=== PATIENT | male | born 1940 | race Caucasian/White ===

== ENCOUNTER → 2021-01-09 10:04 | Outpatient (BNVA) | payer MEDICARE, OTHER, SELFPAY | PROVIDERS: PCP Family Medicine; Visit Provider Family Medicine | DX: I10 Essential (primary) hypertension (principal); R41.0 Disorientation, unspecified | CPT/HCPCS: 80053; 85025 ==

== ENCOUNTER → 2021-05-08 14:00 | Outpatient (BNVA) | payer MEDICARE, OTHER, SELFPAY | PROVIDERS: PCP Family Medicine; Referring Provider Family Medicine; Visit Provider Specialist | DX: G30.9 Alzheimer's disease, unspecified (principal); F02.80 Dementia in other diseases classified elsewhere, unspecified severity, without behavioral disturbance, psychotic disturbance, mood disturbance, and anxiety; Z86.73 Personal history of transient ischemic attack (TIA), and cerebral infarction without residual deficits; I35.0 Nonrheumatic aortic (valve) stenosis | CPT/HCPCS: 96116; 99205 ==

== ENCOUNTER 2021-06-20 13:18 | Outpatient (CLI) | payer MEDICARE, SELFPAY ==
--- NOTE | 2021-06-20 13:52 | MR_ITS ---
WS: [id number] MRA CAROTID WITHOUT GADOLINIUM ENHANCEMENT TECHNIQUE: Axial 2-D TOF and T slip carotid obtained with axial images and axial, sagittal, and coron al 2-D reformatted images. 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 FINDINGS: RIGHT: Right common carotid artery is patent. Right proximal ICA stenosis measures approximately 50%. ICA is patent to the skull base. LEFT: Left common carotid artery is patent. Left proximal ICA stenosis measures approximately 75-80%. Left ICA appears somewhat diminutive in the neck but patent to the skull base. Somewhat diminutive p etrous and cavernous segments. Left dominant vertebral artery. Left vertebral artery is patent to the vertebrobasilar junction Tiny hypoplastic right vertebral artery with only a tiny amount of flow. MR/MR angio neck wo con [id number] IMPRESSION: 1. Left proximal ICA stenosis measures approximately 75-80%. Left cervical ICA is patent to the skull base producing caliber. Small caliber petrous and marlen nous segments. Recommend further evaluation with gadolinium bolus carotid MRA o r CTA prior to surgical intervention for better anatomic detail. 2. Approximately 50% right ICA stenosis. 3. Left dominant vertebral artery. Tiny hypoplastic right vertebral artery.
--- NOTE | 2021-06-20 13:52 | MR_ITS ---
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 TECHNIQUE: Diffusion imaging, multiplanar T1, T2 and FLAIR imaging obtained. Diffusion-weighted abnormality involving the cortex of the posterior RIGHT occipital lobe. This is al paris the posterior aspect of a prior large territory infarct involving the RIGHT temporal occipital lo be. No additional acute infarct. There is extensive volume loss in the RIGHT occipital and temporal lobes from encephalomalacia and as sociated cortical laminar necrosis. Mild diffuse ventriculomegaly from atrophy and volume loss. No inferior displacement of cerebellar tonsils. The sella turcica and pituitary gland are unremarkabl e. Dural venous sinuses and [place] demonstrate no abnormality on this unenhanced studies. Paranasal sinuses: Clear. Mastoid air cells: Small bilateral mastoid air cell effusions. Slightly greater pocket of fluid in th e LEFT mastoid air cell. Calvarium and scalp: Intact. MR/MR head wo con* [id number] IMPRESSION: 1. Small acute to subacute lacunar infarct posterior cortex of the RIGHT occip ital lobe. Closely associated with the prior large RIGHT temporal occipital lob e infarct with volume loss and encephalomalacia. 2. Otherwise mild chronic microvascular ischemic changes.
== END 2021-06-20 13:19 | disposition home or self-care (01) ==
PROVIDERS: PCP Family Medicine; Visit Provider Specialist
DX: I63.6 Cerebral infarction due to cerebral venous thrombosis, nonpyogenic (principal); I65.23 Occlusion and stenosis of bilateral carotid arteries; I63.81 Other cerebral infarction due to occlusion or stenosis of small artery
CPT/HCPCS: 70547; 70551

== ENCOUNTER → 2021-10-18 14:57 | Outpatient (BNVA) | payer MEDICARE, SELFPAY | PROVIDERS: PCP Family Medicine; Visit Provider Specialist | DX: G30.9 Alzheimer's disease, unspecified (principal); F02.80 Dementia in other diseases classified elsewhere, unspecified severity, without behavioral disturbance, psychotic disturbance, mood disturbance, and anxiety; Z86.73 Personal history of transient ischemic attack (TIA), and cerebral infarction without residual deficits | CPT/HCPCS: 99214; 99215 ==

== ENCOUNTER → 2022-02-19 11:30 | Outpatient (BNVA) | payer MEDICARE, SELFPAY | PROVIDERS: PCP Family Medicine; Visit Provider Family Medicine | DX: I63.511 Cerebral infarction due to unspecified occlusion or stenosis of right middle cerebral artery (principal); G30.9 Alzheimer's disease, unspecified; F02.80 Dementia in other diseases classified elsewhere, unspecified severity, without behavioral disturbance, psychotic disturbance, mood disturbance, and anxiety; I10 Essential (primary) hypertension | CPT/HCPCS: 80053 ==

== ENCOUNTER 2022-03-27 12:53 | Outpatient (CLI) | payer MEDICARE, SELFPAY ==
--- NOTE | 2022-03-27 13:00 | CT_ITS ---
WS: [id number] CTA NECK TECHNIQUE: Contrast enhanced CTA of the neck with coronal and sagittal reformatted images and maximum intensity projection (MIP) images. NASCET criteria utilized. CLINICAL INFORMATION: I63.511 - Cerebral infarction due to unspecified occlusio... COMPARISON: MRA June 20, 2021 DLP: 298.[address] scans at [facility] use at least one of these dose optimization techniques: automated e xposure control; mA and/or kV adjustment per patient size (includes targeted exams where dose is matc hed to clinical indication); or iterative reconstruction. FINDINGS: RIGHT: RIGHT common carotid artery is patent. Dense calcified atheromatous plaque RIGHT carotid bulb extending into the ICA. RIGHT ICA is patent to the skull base. Retropharyngeal course to the RIGHT ce rvical ICA. Cavernous carotid calcification. RIGHT ICA stenosis measures 65%. LEFT: LEFT common carotid artery is patent. Calcified atheromatous plaque LEFT carotid bulb extending into the ICA. LEFT ICA is patent to the skull base. Cavernous carotid calcification. LEFT ICA stenos is measures 61%. LEFT vertebral artery is patent. Tiny RIGHT vertebral artery is patent. Proximal basilar artery is pa tent. Absent LEFT A1 segment. Moderate narrowing LEFT supraclinoid ICA. Mild intracranial segmental a theromatous disease involving the [employer] territory and MCA territory. Paranasal sinuses are well aerated. Small retention cyst RIGHT maxillary sinus. Prior postoperative c hanges LEFT canal wall up mastoidectomy. Recommend correlation with clinical history. Partial opacifi cation LEFT mastoid air cells. Soft tissue thickening LEFT middle ear. Partially visualized infarcts in the RIGHT temporal lobe. Advanced spondylitic changes cervical spine. Straightening of the normal cervical lordosis with cervical curve. CT/CT angio neck [id number] IMPRESSION: 1. RIGHT ICA stenosis measures 65%. 2. LEFT ICA stenosis measures 61%. 3. Calcified atheromatous disease both carotid bulbs extending into the ICAs. This is worse on the RIGHT. 4. Cavernous carotid calcification. 5. LEFT vertebral artery is patent. Diminutive RIGHT vertebral artery.
[2022-03-27] MEDS: iohexol 350 mg/mL 100 mL Btl IV (14:00)
== END 2022-03-27 12:54 | disposition home or self-care (01) ==
PROVIDERS: PCP Family Medicine; Visit Provider Family Medicine
DX: Z86.73 Personal history of transient ischemic attack (TIA), and cerebral infarction without residual deficits (principal); F02.80 Dementia in other diseases classified elsewhere, unspecified severity, without behavioral disturbance, psychotic disturbance, mood disturbance, and anxiety; G30.9 Alzheimer's disease, unspecified; I65.23 Occlusion and stenosis of bilateral carotid arteries
CPT/HCPCS: 70498; Q9967

== ENCOUNTER → 2022-06-27 12:52 | Outpatient (BNVA) | payer MEDICARE, SELFPAY | PROVIDERS: PCP Family Medicine; Visit Provider Specialist | DX: G30.9 Alzheimer's disease, unspecified (principal); F02.C11 Dementia in other diseases classified elsewhere, severe, with agitation; I65.23 Occlusion and stenosis of bilateral carotid arteries | CPT/HCPCS: 99214 ==

== ENCOUNTER → 2022-10-18 11:19 | Outpatient (BNVA) | payer MEDICARE, SELFPAY | PROVIDERS: PCP Family Medicine; Visit Provider Family Medicine | DX: G45.9 Transient cerebral ischemic attack, unspecified (principal); I63.9 Cerebral infarction, unspecified; I63.512 Cerebral infarction due to unspecified occlusion or stenosis of left middle cerebral artery | CPT/HCPCS: 80053; 80061; 85025 ==

== ENCOUNTER → 2023-06-25 12:27 | Outpatient (BNVA) | payer MEDICARE, SELFPAY | PROVIDERS: PCP Family Medicine; Visit Provider Specialist | DX: R41.3 Other amnesia (principal); G30.9 Alzheimer's disease, unspecified; F02.80 Dementia in other diseases classified elsewhere, unspecified severity, without behavioral disturbance, psychotic disturbance, mood disturbance, and anxiety | CPT/HCPCS: 99214 ==

== ENCOUNTER → 2024-06-24 12:13 | Outpatient (BNVA) | payer MEDICARE, SELFPAY | PROVIDERS: PCP Family Medicine; Visit Provider Specialist | DX: R41.3 Other amnesia (principal); G30.9 Alzheimer's disease, unspecified; F02.80 Dementia in other diseases classified elsewhere, unspecified severity, without behavioral disturbance, psychotic disturbance, mood disturbance, and anxiety | CPT/HCPCS: 99213 ==